=== PATIENT | male | born 1950 | race Caucasian/White ===

== ENCOUNTER 2024-02-25 08:55 | Day surgery (SDC) | payer MEDICARE, BC ==
[~2024-02-25] VITALS: Ht 177.8 cm; Wt 66.2 kg
[~2024-02-25 08:55] MED LIST: ASPI81CH2 PO; ASPI81CH33 PO; ATOR80TA59 PO; CARV3.12 PO; CLOP75TA2 PO; CYCLOPENTOLATE 1% OPHTH SOLN 2ML BTL OS SCH; ENTR1TAB PO; FURO20TA2 PO; JARD1TAB PO; LIDOCAINE 3.5 % 1ML OPHTH TOPICAL GEL OU ONE; OFLOXACIN 0.3 % (OCUFLOX) OPTH SOL 5ML OS ONE; PHENYLEPHRINE 10% OPHTH SOL 5ML OS PRN; PHENYLEPHRINE 2.5% OPHTH SOL 2ML OS SCH; SPIR-10 PO; TAMS1CAP17 PO; TROPICAMIDE 1% OPHTH SOLN 15ML OS SCH; XALA0.007 OU
[2024-02-25] MEDS ORDERED: MIDAZOLAM INJ 2MG/2ML VIAL As Ordered ONE (10:57)
[2024-02-25] MEDS ORDERED: fentaNYL 100 MCG/2 ML INJECTION As Ordered ONE (10:58)
[2024-02-25] MEDS: LIDOCAINE 1% SDV 5ML VIAL As Ordered ONE (11:36)
[2024-02-25] MEDS: BSS IRRIG/VANCO(10MG)/TOBRA(5MG)/EPINEPH(1:1000-0.5CC)500ML BAG-ORONLY As Ordered ONE (11:37)
[2024-02-25] MEDS: CEFUROXIME 1MG/0.1ML INTRACAMERAL INJ As Ordered ONE (11:37)
[2024-02-25] MEDS: DUOVISC (0.50ML VISCOAT/0.85ML PROVISC) OPHTH KIT As Ordered ONE (11:41)
[2024-02-25 11:53] VITALS: BP 114/69; TEMP 97.5; O2SAT 99
== END 2024-02-25 12:27 | disposition home or self-care (01) ==
LOC: M SDC 08:55
PROVIDERS: ATTEND Ophthalmology
DX: H40.1122 Primary open-angle glaucoma, left eye, moderate stage (principal); H25.12 Age-related nuclear cataract, left eye; I25.10 Atherosclerotic heart disease of native coronary artery without angina pectoris; I25.2 Old myocardial infarction; Z95.0 Presence of cardiac pacemaker; N40.0 Benign prostatic hyperplasia without lower urinary tract symptoms; Z95.5 Presence of coronary angioplasty implant and graft; Z86.74 Personal history of sudden cardiac arrest; Z79.02 Long term (current) use of antithrombotics/antiplatelets; Z79.899 Other long term (current) drug therapy; Z79.82 Long term (current) use of aspirin; Z90.89 Acquired absence of other organs
CPT/HCPCS: 66991; C1783; J0697; J2250; J3010; V2632

== ENCOUNTER 2024-03-24 10:21 | Day surgery (SDC) | payer MEDICARE, BC ==
[~2024-03-24] VITALS: Ht 177.8 cm; Wt 66.2 kg
[2024-03-24] MEDS: LIDOCAINE 3.5 % 1ML OPHTH TOPICAL GEL OU ONE (06:00)
[2024-03-24] MEDS: OFLOXACIN 0.3 % (OCUFLOX) OPTH SOL 5ML OD ONE (06:00)
[~2024-03-24 10:21] MED LIST changes: -CYCLOPENTOLATE 1% OPHTH SOLN 2ML BTL OS SCH; -LIDOCAINE 3.5 % 1ML OPHTH TOPICAL GEL OU ONE; -OFLOXACIN 0.3 % (OCUFLOX) OPTH SOL 5ML OS ONE; +PHENYLEPHRINE 10% OPHTH SOL 5ML OD PRN; -PHENYLEPHRINE 10% OPHTH SOL 5ML OS PRN; -PHENYLEPHRINE 2.5% OPHTH SOL 2ML OS SCH; -TROPICAMIDE 1% OPHTH SOLN 15ML OS SCH
[2024-03-24] MEDS: PHENYLEPHRINE 2.5% OPHTH SOL 2ML OD SCH (10:49)
[2024-03-24] MEDS: CYCLOPENTOLATE 1% OPHTH SOLN 2ML BTL OD SCH (10:49)
[2024-03-24] MEDS: TROPICAMIDE 1% OPHTH SOLN 15ML OD SCH (10:50)
[2024-03-24] MEDS ORDERED: MIDAZOLAM INJ 2MG/2ML VIAL As Ordered ONE (11:19)
[2024-03-24] MEDS ORDERED: fentaNYL 100 MCG/2 ML INJECTION As Ordered ONE (11:55)
[2024-03-24] MEDS: BSS IRRIG/VANCO(10MG)/TOBRA(5MG)/EPINEPH(1:1000-0.5CC)500ML BAG-ORONLY As Ordered ONE (12:10)
[2024-03-24] MEDS: LIDOCAINE 1% SDV 5ML VIAL As Ordered ONE (12:10)
[2024-03-24] MEDS: PROVISC 10 MG/ML 0.85ML SYRINGE As Ordered ONE (12:15)
[2024-03-24] MEDS: CEFUROXIME 1MG/0.1ML INTRACAMERAL INJ As Ordered ONE (12:15)
[2024-03-24] MEDS: DUOVISC (0.50ML VISCOAT/0.85ML PROVISC) OPHTH KIT As Ordered ONE (12:15)
[2024-03-24 12:30] VITALS: BP 107/63; TEMP 98.2; O2SAT 95
== END 2024-03-24 12:49 | disposition home or self-care (01) ==
LOC: M SDC 10:21
PROVIDERS: ATTEND Ophthalmology
DX: H25.11 Age-related nuclear cataract, right eye (principal); H40.1111 Primary open-angle glaucoma, right eye, mild stage; I25.10 Atherosclerotic heart disease of native coronary artery without angina pectoris; I10 Essential (primary) hypertension; Z95.810 Presence of automatic (implantable) cardiac defibrillator; I25.2 Old myocardial infarction; Z79.899 Other long term (current) drug therapy
CPT/HCPCS: 66991; A4649; C1783; J0697; J2250; J3010; V2632